=== PATIENT | male | born 1980 | race Caucasian/White ===

== ENCOUNTER 2016-09-25 09:06 | Emergency (ER) | payer BC ==
[~2016-09-25] VITALS: Ht 177.8 cm; Wt 83.0 kg
[2016-09-25 09:45] VITALS: BP 115/77
== END 2016-09-25 09:45 | disposition home or self-care (01) ==
LOC: ED 09:11
DX: S39.012A Strain of muscle, fascia and tendon of lower back, initial encounter (principal); X50.9XXA Other and unspecified overexertion or strenuous movements or postures, initial encounter; Y93.E1 Activity, personal bathing and showering; Y92.002 Bathroom of unspecified non-institutional (private) residence as the place of occurrence of the external cause
CPT/HCPCS: 99282; 99283